=== PATIENT | female | born 1960 | race Caucasian/White ===

== ENCOUNTER 2016-10-17 07:19 | Emergency (ER) | payer OTHER ==
[2016-10-17 07:31] VITALS: BP 120/81
--- NOTE | 2016-10-17 08:31 | RAD ---
HISTORY: Pain, left lateral knee pain COMPARISONS: None VIEWS: 4, Frontal, lateral, axial, and oblique views of the left knee FINDINGS: BONE DENSITY: Normal. BONES: There is no displaced fracture. There is a superior patellar enthesophyte. JOINTS: There is no arthropathy. There is no suprapatellar joint effusion or lipohemarthrosis. ALIGNMENT: There is no dislocation. SOFT TISSUES: Unremarkable. OTHER FINDINGS: None. IMPRESSION: NO ACUTE OSSEOUS INJURY. IF SYMPTOMS PERSIST, RECOMMEND REPEAT IMAGING.
--- NOTE | 2016-10-17 08:45 | UC ---
Concepcion Jacobo Alok, scribed for Elissa Aguilar MD on 10/17/16 at 0804 . Knee Pain HPI - HPI Summary HPI Summary: 56 y/o female presents to the with c/o left knee pain. This pain beginning 2 weeks ago, described as a soreness, subsided after a few days until going skiiing again 3 days ago. Pt states she has been changing her skiing technique as of late but uses the same equipment. Pain in lateral aspect of knee - worse with walking. PT states walking with a limp. Pt has been taking Ibuprofen before bed with moderate pain alleviation. Pt denies any back or hip pain. Pt has she has had no knee surgery in the past nor has had any recent injuries on that knee in the past few decades. This pain is concentrated to the outside of the left knee. No leg or knee edema. No erythema. No direct trauma. No paresthesias. Pt states it can be worse during exertion following long rests. Pt denies any injury or trauma. Pt has no prescription medications, NKDA, does not use tobacco, and has one EtOH drink a day. - History of Current Complaint Chief Complaint: UCLowerExtremity Stated Complaint: KNEE INJURY Time Seen by Provider: 10/17/16 07:55 Hx Obtained From: Patient ?: No Onset/Duration: Gradual Onset, Lasting Days, Still Present Severity Initially: Moderate Severity Currently: Moderate Character: Aching Aggravating Factor(s): Movement - Movement after prolonged rest Alleviating Factor(s): OTC Meds - Ibuphrofen Associated Signs And Symptoms: Positive: Negative - Allergies/Home Medications Allergies/Adverse Reactions: Allergies Allergy/AdvReac Type Severity Reaction Status Date / Time No Known Allergies Allergy Verified 10/17/16 07:31 Home Medications: Home Medications Calcium Carbonate [Calcium] 1 tab PO DAILY 10/17/16 [History Confirmed 10/17/16] Coenzyme Q10 (Ubidecarenone) [Coq-10] 200 mg PO DAILY 10/17/16 [History Confirmed 10/17/16] [place]-3 Fatty Acids [Fish Oil] 2,000 mg PO DAILY 10/17/16 [History Confirmed 03/28] PMH/Surg Hx/FS Hx/Imm Hx Endocrine History Of: Denies: Diabetes, Thyroid Disease Cardiovascular History Of: Denies: Cardiac Disorders, Hypertension Respiratory History Of: Denies: Asthma Cancer History Of: Denies: Breast Cancer - Surgical History Surgical History: Yes Surgery Procedure, Year, and Place: [facility] SEVERAL YEARS AGO - Family History Known Family History: Positive: Hypertension, Diabetes - Social History Occupation: Employed Full-time Lives: With Family - Alcohol Use: Daily Substance Use Type: None Smoking Status (MU): Never Smoked Tobacco Review of Systems Constitutional: Negative Skin: Negative Eyes: Negative ENT: Negative Respiratory: Negative Cardiovascular: Negative Gastrointestinal: Negative Genitourinary: Negative Motor: Negative Neurovascular: Negative Musculoskeletal: Other: - Outside left knee pain Neurological: Negative Psychological: Negative All Other Systems Reviewed And Are Negative: Yes Physical Exam Triage Information Reviewed: Yes Appearance: Well-Appearing, No Pain Distress, Well-Nourished Vital Signs: Initial Vital Signs Temp 98.5 F 10/17/16 07:25 Pulse 61 10/17/16 07:25 Resp 16 10/17/16 07:25 BP 120/81 10/17/16 07:25 Pulse Ox 99 10/17/16 07:25 Vital Signs Reviewed: Yes Respiratory: Positive: Normal breath sounds, No respiratory distress Cardiovascular: Positive: Other: - 2+ DP, PT CBT < 2 sec Musculoskeletal: Positive: Strength Intact, ROM Intact, No Edema, Other: - + flex/ext hip, ankle + SLE b/l + flex/ext knee against resistance with discomfort lateral aspect of knee + TTP along lateral aspect of knee No crepitus Neg anter/posterior drawer + TTP left lateral knee with stress - no laxity No effusion Neurological Exam: Normal Neurological: Positive: Other: - full normal sensation throughout LE Skin Exam: Normal Diagnostics - Radiology Knee XRAY Xray Interpretation: Positive (See Comments) - IMPRESSION: NO ACUTE OSSEOUS INJURY. IF SYMPTOMS PERSIST, RECOMMEND REPEAT IMAGING. Radiology Interpretation Completed By: Radiologist Knee Pain Course/Dx - Course Course Of Treatment: Pt with pain left lateral knee s/p skiing. Pt with pain along lateral joint line - no laxity, effusion. imaging neg for acute process. Recommend adonis, crutches. elevate. ice. motrin/apap. PCP follow-up. Pt aware if sx persiste may require PT, ortho, or additional imaging - Differential Dx/Diagnosis Provider Diagnoses: knee sprain, left Discharge - Discharge Plan Condition: Stable Disposition: HOME Patient Education Materials: Knee Sprain (ED) Referrals: Jenny Yao NP [Primary Care Provider] - Additional Instructions: - Okay to alternate ibuprofen (advil, motrin) and tylenol every 3 hours for pain. Take with food. Do NOT take for more than 4-5 days - WEar adonis wrap for support - Use crutches until you can walk normally without a limp - Apply ice (wrapped in a towel) 20 minutes at a time, 2-3 times a day - Contact your doctor to schedule a follow-up appointment early next week. Contact your doctor or return with questions or concerns The documentation as recorded by the Concepcion khalil Alok accurately reflects the service I personally performed and the decisions made by , Elissa Aguilar MD.
== END 2016-10-17 08:55 | disposition home or self-care (01) ==
LOC: UCEAST 07:19
DX: S83.92XA Sprain of unspecified site of left knee, initial encounter (principal); X58.XXXA Exposure to other specified factors, initial encounter; Y93.9 Activity, unspecified; Y92.9 Unspecified place or not applicable
CPT/HCPCS: 99212; G0463

== ENCOUNTER 2017-04-26 08:52 | Emergency (ER) | payer OTHER ==
[2017-04-26 08:59] VITALS: BP 115/73
--- NOTE | 2017-04-26 09:19 | UC ---
Shoulder Pain HPI - HPI Summary HPI Summary: GRADUAL ONSET OF LEFT SHOULDER PAIN AND DECREASED RANGE OF MOTION OVER THE PAST FEW MONTHS. NO TRAUMA OR INJURY. NO PREVIOUS SHOULDER PATHOLOGY. - History of Current Complaint Chief Complaint: UCUpperExtremity Stated Complaint: SHOULDER PAIN Time Seen by Provider: 04/26/17 09:13 Hx Obtained From: Patient Onset/Duration: Gradual Onset, Lasting Weeks, Still Present Timing: Constant Severity Initially: Moderate Severity Currently: Moderate Location Of Pain: Is Discrete @ - LEFT SHOULDER Pain Intensity: 6 Pain Scale Used: 0-10 Numeric Character: Dull, Aching Aggravating Factor(s): Movement Alleviating Factor(s): Rest Associated Signs And Symptoms: Positive: Negative Related History: Dominant Hand Right - Allergies/Home Medications Allergies/Adverse Reactions: Allergies Allergy/AdvReac Type Severity Reaction Status Date / Time No Known Allergies Allergy Verified 04/26/17 08:53 PMH/Surg Hx/FS Hx/Imm Hx Previously Healthy: Yes - Surgical History Surgical History: Yes Surgery Procedure, Year, and Place: [facility] SEVERAL YEARS AGO - Family History Known Family History: Positive: Hypertension, Diabetes - Social History Alcohol Use: Daily Alcohol Amount: wine Substance Use Type: None Smoking Status (MU): Never Smoked Tobacco Review of Systems Constitutional: Negative Skin: Negative Respiratory: Negative Cardiovascular: Negative Gastrointestinal: Negative Musculoskeletal: Arthralgia, Decreased ROM, Myalgia All Other Systems Reviewed And Are Negative: Yes Physical Exam Triage Information Reviewed: Yes Appearance: Well-Appearing, No Pain Distress, Well-Nourished Vital Signs: Initial Vital Signs Temp 97.3 F 04/26/17 08:56 Pulse 58 04/26/17 08:56 Resp 16 04/26/17 08:56 BP 115/73 04/26/17 08:56 Pulse Ox 100 04/26/17 08:56 Vital Signs Reviewed: Yes Eyes: Positive: Conjunctiva Clear ENT: Positive: Hearing grossly normal Neck: Positive: Supple Respiratory: Positive: No respiratory distress, No accessory muscle use Cardiovascular: Positive: Pulses Normal Abdomen Description: Positive: Soft Musculoskeletal: Positive: No Edema, ROM Limited @ - LEFT SHOULDER BOTH ACTIVE/ PASSIVE. CAN GO FURTHER WITH PASSIVE ROM, Other: - NO TENDERNESS OVER ANY BONY PROMINENCES. NEGATIVE YERGASONS. POSITIVE EMPTY CAN AND DELONG Psychological: Positive: Age Appropriate Behavior Skin: Negative: rashes Diagnostics - Radiology LEFT SHOULDER XRAY Xray Interpretation: Positive (See Comments) - FINDINGS MOST CONSISTENT WITH CALCIFIC TENDINITIS Radiology Interpretation Completed By: Radiologist Shoulder Course/Dx - Differential Dx/Diagnosis Provider Diagnoses: LEFT SHOULDER CALCIFIC TENDINITIS Discharge - Discharge Plan Condition: Stable Disposition: HOME Patient Education Materials: Calcific Tendinitis (ED) Referrals: Jenny Yao NP [Primary Care Provider] - If Needed Rafael Lowery MD [Medical Doctor] - 1 Week Additional Instructions: CALCIFIC TENDINITIS/TENDINOSIS YOUR XRAY SHOWS A CALCIUM DEPOSIT IN THE TENDONS OF YOUR SHOULDER. THIS COULD BE CONTRIBUTING TO YOUR SYMPTOMS. SUCCESSFUL MANAGEMENT OFTEN CONSISTS OF MEDICATION, A SLING AND PHYSICAL THERAPY. OCCASIONALLY INJECTIONS MAY BE INDICATED. IN RARE CASES SURGERY MAY BE CONSIDERED. The onset of symptoms is usually spontaneous and is associated with the rapid development of excruciating shoulder pain and inability to sleep. The patient is exceedingly tender to palpation and has extreme pain with any attempted motion of the shoulder. There may be warmth and fullness. Elbow and hand motion are normal and circulation/neurologic examination is intact. FOLLOW-UP WITH ORTHO FOR FURTHER EVALUATION AND MANAGEMENT. PHYSICAL THERAPY REFERRAL GIVEN TODAY.
--- NOTE | 2017-04-26 10:05 | RAD ---
INDICATION: Left shoulder pain. TECHNIQUE: 4 views of the left shoulder were obtained. FINDINGS: The bones are in normal alignment. No fracture is seen. There are calcific densities adjacent to the superior lateral aspect of the humeral head most consistent with calcific tendinitis. IMPRESSION: FINDINGS MOST CONSISTENT WITH CALCIFIC TENDINITIS.
== END 2017-04-26 10:31 | disposition home or self-care (01) ==
LOC: UCEAST 08:52
DX: M75.32 Calcific tendinitis of left shoulder (principal)
CPT/HCPCS: 99211; G0463